=== PATIENT | female | born 1995 | race Caucasian/White ===

== ENCOUNTER 2021-01-07 05:08 | Emergency (ER) | payer MEDICAID, SELFPAY ==
--- NOTE | ~2021-01-07 | XR_ITS ---
EXAMINATION: CT abdomen pelvis wo con, XR abdomen/kub 1V DATE: 01/07/2021 06:10 (accession [id number]), 01/07/2021 07:23 (accession [id number]) INDICATION: Left flank pain TECHNIQUE: Computed tomography (CT) of the abdomen and pelvis was performed without intravenous contr ast. The dose-length product was 1600.73 mGy-cm. Automated exposure control and iterative reconstruct ion technique were employed. KUB COMPARISON: No prior studies for comparison. FINDINGS: Lung bases are unremarkable. Heart size normal. No significant pleural or pericardial effus ion. The liver, spleen, pancreas, adrenal glands are unremarkable. There are small 2-3 mm nonobstruct ing bilateral renal stones. No ureteral stones or hydronephrosis. Nonobstructive bowel gas pattern. Normal appendix. No evidence for diverticulitis. No free air or medardo e fluid. Gallbladder is present. No significant vascular abnormality. No lymphadenopathy. No acute os seous abnormality. KUB: Nonobstructive bowel gas pattern with moderate colonic fecal loading in the right colon. There i s a right pelvic phlebolith. Lung bases unremarkable. No acute osseous abnormality. Renal stones are not visualized on KUB. IMPRESSION: 1. Nonobstructing bilateral nephrolithiasis. Reviewed, dictated and finalized at location A. IMPRESSION: 1. Nonobstructing bilateral nephrolithiasis.
[2021-01-07 05:18] VITALS: BP 146/108; PULSE 105; RESP 18; TEMP 36.8; O2SAT 99
--- NOTE | 2021-01-07 05:19 | ED.BACK ---
HPI - Back Pain/Injury General Chief Complaint: Back Pain/Injury <Semaj Parker MD - Last Filed: 01/13/21 13:01> Stated Complaint: ?L kidney stone <Semaj Parker MD - Last Filed: 01/13/21 13:01> Time Seen by Provider: 01/07/21 05:19 <Semaj Parker MD - Last Filed: 01/13/21 13:01> History of Present Illness HPI Narrative: Left flank pain since last night. Severe. Radiates to LLQ. Associated with nausea. Feels like past kidney stone. Mild dysuria. No fever, chills. <Semaj Parker MD - Last Filed: 01/13/21 13:01> Related Data Home Medications: Home Medications Medication Instructions Recorded Confirmed bupropion HCl mg PO 01/07/21 topiramate 01/07/21 <Semaj Parker MD - Last Filed: 01/13/21 13:01> Allergies/Adverse Reactions: Allergies Allergy/AdvReac Type Severity Reaction Status Date / Time ketorolac [From Toradol] Allergy Rash Verified 01/07/21 05:23 minocycline Allergy Headache Verified 01/07/21 05:23 Tetracyclines Allergy Headache Verified 01/07/21 05:23 <Semaj Parker MD - Last Filed: 01/13/21 13:01> Review of Systems Review of Systems: All systems reviewed & are unremarkable except as noted in HPI and below <Semaj Parker MD - Last Filed: 01/13/21 13:01> Constitutional: Constitutional: Denies fever(s) <Semaj Parker MD - Last Filed: 01/13/21 13:01> Cardiovascular: Cardiovascular: Denies chest pain <Semaj Parker MD - Last Filed: 01/13/21 13:01> Respiratory: Respiratory: Denies dyspnea <Semaj Parker MD - Last Filed: 01/13/21 13:01> Gastrointestinal: Gastrointestinal: Reports as per HPI <Semaj Parker MD - Last Filed: 01/13/21 13:01> Genitourinary: Genitourinary: Reports no additional female genitourinary complaints, Denies abnormal vaginal bleeding and Denies vaginal discharge <Semaj Parker MD - Last Filed: 01/13/21 13:01> Neurologic: Reports system reviewed and no additional complaints, except as documented <Semaj Parker MD - Last Filed: 01/13/21 13:01> [facility] Past Medical History Medical History: Medical History (Updated 01/13/21 @ 12:59 by Semaj Parker MD) HTN (hypertension) Kidney stone <Semaj Parker MD - Last Filed: 01/13/21 13:01> Exam Const: General: healthy appearing, no acute distress and alert <Semaj Parker MD - Last Filed: 01/13/21 13:01> Nutritional Appearance: obese <Semaj Parker MD - Last Filed: 01/13/21 13:01> Orientation/consciousness: patient oriented x3 <Semaj Parker MD - Last Filed: 01/13/21 13:01> HENMT: Head: normal to inspection <Semaj Parker MD - Last Filed: 01/13/21 13:01> Neck: Neck: normal visual inspection <Semaj Parker MD - Last Filed: 01/13/21 13:01> Resp: Effort & Inspection: normal respiratory effort <Semaj Parker MD - Last Filed: 01/13/21 13:01> Auscultation: clear to auscultation bilaterally, no rales, no rhonchi and no wheezes <Semaj Parker MD - Last Filed: 01/13/21 13:01> Cardio: Jugular venous distension: no JVD <Semaj Parker MD - Last Filed: 01/13/21 13:01> Rate: tachycardic <Semaj Parkre MD - Last Filed: 01/13/21 13:01> Rhythm: regular rhythm <Semaj Parker MD - Last Filed: 01/13/21 13:01> Heart sounds: no murmurs <Semaj Parker MD - Last Filed: 01/13/21 13:01> GI: Inspection: non-distended <Semaj Parker MD - Last Filed: 01/13/21 13:01> GI Palp: Yes Soft to palpation and No Tenderness to palpation present (GI) <Semaj Parker MD - Last Filed: 01/13/21 13:01> : General: Yes CVA tenderness on the left <Semaj Parker MD - Last Filed: 01/13/21 13:01> Skin: General skin exam: normal color <Semaj Parker MD - Last Filed: 01/13/21 13:01> Neuro: General: patient oriented x3 and moves all extremities <Semaj Parker MD - Last Filed: 01/13/21 13:01> Speech: normal speech <Semaj Remy
[2021-01-07] MEDS: ONDANSETRON INJ 4 MG/2 ML VIAL IV PUSH (05:37)
[2021-01-07] MEDS: MORPHINE SULFATE (*CRX) 4 MG/ML INJ IV PUSH (05:37)
[2021-01-07] MEDS: SODIUM CHLORIDE 0.9% IV 1,000 ML 999 ML IV CONT (05:37)
[2021-01-07 05:46] LABS: Basophils Percent Auto 0.4 % (0.2-1.2); Eosinophils Percent Auto 0.1 % (0-4.4); Hematocrit 40.7 % (37.0-47.0); Hemoglobin 13.4 g/dL (12.0-15.0); Immature Granulocyte Absolute 0.02 K/mm3 (0.00-0.031); Immature Granulocyte Percent A 0.3 % (0-0.5); Lymphocytes Absolute Auto 2.39 K/mm3 (0.9-3.2); Mean Corpuscular HGB Conc 32.9 g/dl (32-36); Mean Corpuscular Hemoglobin 30.2 pg (26-34); Mean Corpuscular Volume 91.7 fl (80-100); Mean Platelet Volume 8.3 fl (7.4-10.4); Monocytes Absolute Auto 0.3 K/mm3 (0.1-0.6); Monocytes Percent Auto 4.8 % (2.6-8.5); Neutrophils Absolute Auto 4.2 K/mm3 (1.3-6.7); Neutrophils Percent Auto 60.4 % (45.5-73.1); Platelet Count Result 377 k/mm3 (150-375); Red Blood Count 4.44 M/mm3 (4.2-5.4); Red Cell Distribution Width 12.6 % (11.5-14.5)
[2021-01-07 05:56] LABS: Alanine Aminotransferase 30 U/L (4-35); Albumin Level 4.5 g/dL (3.5-5.1); Alkaline Phosphatase 126 U/L (38-126); Anion Gap 10 mmol/L (8-16); Aspartate Amino Transferase 37 U/L (14-36); Bilirubin,Total 0.4 mg/dL (0.2-1.3); Blood Urea Nitrogen 11 mg/dL (7-17); Calcium 9.7 mg/dL (8.4-10.2); Carbon Dioxide 20 mmol/L (22-30); Chloride 109 mmol/L (98-107); Estimated CRCL calculation 100 ml/min; Estimated Glomerular Filt Rate > 60; Glucose 118 mg/dL (65-110); Lipase 57 U/L (23-300); Potassium 3.9 mmol/L (3.4-5.0); Sodium 139 mmol/L (137-145)
[2021-01-07 06:09] LABS: Add Urine Microscopic? YES; Appearance Urine Turbid (Clear); Bacteria Urine 4+ /hpf; Bilirubin Urine Negative (Negative); Blood Urine 3+ (Negative); Color Urine Amber (Yellow); Glucose Urine UA Negative (Negative); Ketones Urine Trace mg/dL (Negative); Leukocyte Esterase Ur Trace LEU/UL (Negative); Mucus Urine Few /lpf; Nitrate Urine Negative (Negative); Protein Urine 2+ mg/dL (Negative); RBC Urine >75 /hpf (0-2); Urobilinogen Urine Negative mg/dL (<2.0)
[2021-01-07] MEDS: MORPHINE SULFATE (*CRX) 2 MG/ML INJ IV PUSH (06:57)
[2021-01-07 07:59] VITALS: BP 139/97; PULSE 95; RESP 16; O2SAT 100
== END 2021-01-07 08:00 | disposition home or self-care (01) ==
PROVIDERS: Emergency Provider Emergency Medicine
DX: N39.0 Urinary tract infection, site not specified (principal); I10 Essential (primary) hypertension; Z87.442 Personal history of urinary calculi; N20.0 Calculus of kidney
CPT/HCPCS: 36415; 74018; 74176; 80053; 81001; 81025; 83690; 85025; 87086; 87088; 96361; 96365; 96375; 96376; 99284; J0696; J2270; J2405; J7030